=== PATIENT | female | born 1990 | race American Indian/Alaskan Native ===

== ENCOUNTER 2016-05-13 15:35 | Emergency (ER) | payer MEDICAID ==
[2016-05-13 17:33] LABS: Basophils % (Auto) 0.7 % (0.0-1.8); Eosinophils % (Auto) 0.8 % (0.0-4.3); Hematocrit 39.5 % (30.3-42.9); Hemoglobin 12.7 gm/dl (10.1-14.3); Mean Corpuscular HGB Conc 32 % (30-34); Mean Corpuscular Volume 80 fl (79-97); Platelet Count 357 K/mm3 (140-440); Red Blood Count 4.91 M/mm3 (3.65-5.03); Red Cell Distribution Width 15.5 % (13.2-15.2); White Blood Count 7.6 K/mm3 (4.5-11.0)
[2016-05-13 17:37] LABS: Mean Corpuscular Hemoglobin 26 pg (28-32)
[2016-05-13 17:49] LABS: Alanine Aminotransferase 15 units/L (7-56); Albumin 4.2 g/dL (3.9-5); Albumin/Globulin Ratio 1.4 %; Alkaline Phosphatase 48 units/L (35-129); Anion Gap 16 mmol/L; BUN/Creatinine Ratio 11.25; Bilirubin,Total 0.3 mg/dL (0.1-1.2); Blood Urea Nitrogen 9 mg/dL (7-17); Calcium 8.8 mg/dL (8.4-10.2); Carbon Dioxide 25 mmol/L (22-30); Chloride 100.1 mmol/L (98-107); Glucose 104 mg/dL (65-100); Lipase 27 units/L (13-60); Potassium 3.8 mmol/L (3.6-5.0); Sodium 137 mmol/L (137-145); Total Protein 7.1 g/dL (6.3-8.2)
[2016-05-13 18:10] LABS: Bilirubin,Urine NEG (Negative); Blood,Urine NEG (Negative); Ketones,Urine NEG (Negative); Leukocyte Esterase,Urine LG (Negative); Mucus,Urine FEW /HPF; Nitrite,Urine NEG (Negative); Protein,Urine <15 mg/dL mg/dL (Negative); Urobilinogen,Urine < 2.0 mg/dL (<2.0)
[2016-05-13 23:48] VITALS: BP 121/67
[2016-05-13] MEDS ORDERED: ZOFRAN ODT PO ONE (23:55)
[2016-05-13] MEDS ORDERED: KEFLEX PO ONE (23:55)
[2016-05-13] MEDS ORDERED: NORCO 7.5/325 PO ONE (23:55)
--- NOTE | 2016-05-14 00:08 | Emergency Department Report ---
HPI - General Chief Complaint: Abdominal Pain Time Seen by Provider: 05/13/16 23:41 - HPI HPI: The patient is a 25-year-old female presents for evaluation of abdominal pain. The patient reports suprapubic abdominal pain for the past 10 hours, constant since onset, 9/10 in severity, cramping and sharp in quality. She reports associated nausea and one episode of nonbilious, nonbloody emesis. She states that she has experienced similar pains in the past, secondary to ovarian cysts. The patient denies fever, chills, night sweats, diarrhea, blood in the stool, dark tarry stool, flank pain, genital discharge, inability to pass flatus. ED Past Medical Hx - Medications Home Medications: Home Medications Medication Instructions Recorded Confirmed Last Taken Type Acetaminophen/Codeine [Tylenol #3] 1 tab PO Q6H PRN #12 tab 05/13/16 Unknown Rx Cephalexin [Keflex] 500 mg PO Q6HR #20 capsule 05/13/16 Unknown Rx Ibuprofen [Motrin] 800 mg PO Q8HR PRN #14 tablet 05/13/16 Unknown Rx Ondansetron [Zofran TAB] 4 mg PO Q8HR PRN #14 tablet 05/13/16 Unknown Rx ED Review of Systems ROS: Stated complaint: HEADACHE/ABD PAIN Other details as noted in HPI Constitutional: denies: fever ENT: denies: throat or neck pain Respiratory: denies: cough, shortness of breath Cardiovascular: denies: chest pain Endocrine: denies unexplained weight loss or gain Gastrointestinal: reports abdominal pain, nausea Genitourinary: denies: dysuria Musculoskeletal: denies: leg swelling Skin: denies: rash Neurological: denies: headache Hematological/Lymphatic: denies: easy bleeding or easy bruising Psych: denies sadness or hopelessness Physical Exam - Physical Exam Vital Signs: Vital Signs 05/13/16 05/13/16 05/13/16 16:14 23:40 23:41 Temperature 98.3 F Pulse Rate 74 66 60 Respiratory 18 15 19 Rate Blood Pressure 136/87 121/67 O2 Sat by Pulse 100 100 99 Oximetry 05/13/16 23:47 Temperature 98.1 F Pulse Rate Respiratory Rate Blood Pressure O2 Sat by Pulse Oximetry Physical Exam: General: well-nourished, well-developed, no acute distress Head: Normocephalic, atraumatic Eyes: normal sclera ENT: Mucous membranes are pink and moist Neck: trachea midline, neck supple, No neck stiffness, no cervical adenopathy Respiratory: Breath sounds equal bilaterally, no wheezing, rales, or rhonchi Cardio: S1 and S2 present, no murmurs, rubs, gallops, capillary refill is brisk Abdomen: Normoactive bowel sounds, soft abdomen, suprapubic tenderness to palpation present, no rigidity, no guarding or rebound tenderness Chest WALL/Back: No tenderness to palpation of the chest wall, no CVA tenderness with percussion Musc: No pitting edema Skin: No rash Neuro: no facial drooping, normal speech Psych: Normal affect ED Course Vital Signs 05/13/16 05/13/16 05/13/16 16:14 23:40 23:41 Temperature 98.3 F Pulse Rate 74 66 60 Respiratory 18 15 19 Rate Blood Pressure 136/87 121/67 O2 Sat by Pulse 100 100 99 Oximetry 05/13/16 23:47 Temperature 98.1 F Pulse Rate Respiratory Rate Blood Pressure O2 Sat by Pulse Oximetry ED Medical Decision Making - Lab Data Result diagrams: 05/13/16 16:58 05/13/16 16:58 - Medical Decision Making The patient was seen and examined by myself. The patient is placed on a monitor and storage bin tender and continuous pulse ox. On initial evaluation, the patient was found to be in no distress. Evaluation orders are placed. The patient given a tablet of Zofran for her nausea and vomiting, and a tablet of [place] for her pain. Lab results revealed positive urine leukocyte esterase with elevated urine WBC, consistent with UTI, and otherwise labs were non-concerning including serum WBC, hemoglobin, hematocrit, electrolytes, renal function, LFTs , lipase, and urinalysis. The patient given a tablet of Keflex for treatment of UTI. The patient was reevaluated and reported that their symptoms were markedly improved. The patient is stable for discharge with outpatient follow- up. The patient is given follow-up and return instructions. The patient expressed understanding and agreed with the plan. The patient is discharged in stable condition. Critical care attestation.: If time is entered above; I have spent that time in minutes in the direct care of this critically ill patient, excluding procedure time. ED Disposition Clinical Impression: Acute UTI (urinary tract infection), Abdominal pain, acute, periumbilical Disposition: DISCHARGED TO HOME OR SELFCARE Is pt being admited?: No Does the pt Need Aspirin: No Condition: Stable Instructions: Abdominal Pain (ED), Urinary Tract Infection in Women (ED) Referrals: PRIMARY CARE, [Primary Care Provider] - 3-5 Days Time of Disposition: 23:56
== END 2016-05-14 00:22 | disposition home or self-care (01) ==
LOC: ED 15:35
DX: N39.0 Urinary tract infection, site not specified (principal)
CPT/HCPCS: 36415; 80053; 81001; 81025; 83690; 85025; 99284; Q0162

== ENCOUNTER 2017-01-22 20:58 | Emergency (ER) | payer SELFPAY ==
[2017-01-22 21:21] VITALS: BP 119/92
[2017-01-22] MEDS ORDERED: FIORICET PO ONE (21:28)
[2017-01-22 21:45] LABS: Basophils % (Auto) 1.3 % (0.0-1.8); Eosinophils % (Auto) 0.8 % (0.0-4.3); Hematocrit 37.7 % (30.3-42.9); Hemoglobin 12.8 gm/dl (10.1-14.3); Mean Corpuscular HGB Conc 34 % (30-34); Mean Corpuscular Hemoglobin 27 pg (28-32); Mean Corpuscular Volume 79 fl (79-97); Platelet Count 334 K/mm3 (140-440); Red Blood Count 4.78 M/mm3 (3.65-5.03); Red Cell Distribution Width 15.4 % (13.2-15.2); White Blood Count 9.3 K/mm3 (4.5-11.0)
[2017-01-22 22:07] LABS: Albumin 4.3 g/dL (3.9-5); Albumin/Globulin Ratio 1.4 %; Alkaline Phosphatase 42 units/L (35-129); Anion Gap 17 mmol/L; BUN/Creatinine Ratio 8; Blood Urea Nitrogen 6 mg/dL (7-17); Carbon Dioxide 25 mmol/L (22-30); Chloride 102.9 mmol/L (98-107); Glucose 108 mg/dL (65-100); Potassium 4.1 mmol/L (3.6-5.0); Sodium 141 mmol/L (137-145); Total Protein 7.4 g/dL (6.3-8.2)
[2017-01-22 22:35] LABS: Alanine Aminotransferase 12 units/L (7-56)
--- NOTE | 2017-01-22 23:54 | Cat Scan Report ---
FINAL REPORT PROCEDURE: CT HEAD/BRAIN WO CON TECHNIQUE: Computerized tomography of the head was performed without contrast material. HISTORY: left eye pain COMPARISON: No prior studies are available for comparison. FINDINGS: Skull and scalp: Normal. Paranasal sinuses: Normal. Ventricles and subarachnoid spaces: Normal. Cerebrum: No evidence of hemorrhage, acute infarction or mass . Cerebellum and brainstem: No evidence of hemorrhage, acute infarction or mass. Vasculature: Normal. Comments: None. IMPRESSION: Normal Examination
[2017-01-23] MEDS ORDERED: FUL-GLO OP ONE (01:55)
[2017-01-23] MEDS ORDERED: TETRACAINE 0.5% OD PRN (01:55)
--- NOTE | 2017-01-23 01:57 | Emergency Department Report ---
ED Eye Problem HPI - General Chief complaint: Eye Problems Stated complaint: LT EYE PAIN Time Seen by Provider: 01/23/17 01:50 Source: patient Mode of arrival: Ambulatory Limitations: No Limitations - History of Present Illness Initial comments: 26YO FEMALE WAS CRYING LAST NIGHT THEN SHE FELT THOUGH A FOREIGN BODY WAS IN HER EYE. SHE SI HERE TODAY WITH A ED LEFT EYE THAT IS TEARING. SHE DENIES TRAUMA, SEASONAL ALLERGIES OR ANYTHING TO THAT EYE. SHE ALSO DENIES ANY MEDICAL PROBLEMS MD chief complaint: eye pain, eye redness, eye injury, foreign body -: Sudden Onset Description: sudden Location: left eye Place: home If Injury: none Eye Symptoms: burning, redness, pain, foreign body sensation, discharge, photophobia Severity scale (0 -10): 4 If Pain, Quality: burning Consistency: constant Associated Symptoms: none. denies: cough, rhinorrhea - Related Data Previous Rx's Medication Instructions Recorded Last Taken Type Acetaminophen/Codeine [Tylenol #3] 1 tab PO Q6H PRN #12 tab 05/13/16 Unknown Rx Cephalexin [Keflex] 500 mg PO Q6HR #20 capsule 05/13/16 Unknown Rx Ibuprofen [Motrin] 800 mg PO Q8HR PRN #14 tablet 05/13/16 Unknown Rx Ondansetron [Zofran TAB] 4 mg PO Q8HR PRN #14 tablet 05/13/16 Unknown Rx Erythromycin [Erythromycin Ophth 1 dose OU ONCE #1 tube 01/23/17 Unknown Rx Oint] Ketorolac Tromethamine [Acular 1 ml OP QID #1 drops 01/23/17 Unknown Rx 0.5% Opth Soln] Allergies Allergy/AdvReac Type Severity Reaction Status Date / Time No Known Allergies Allergy Verified 01/22/17 21:14 ED Review of Systems ROS: Stated complaint: LT EYE PAIN Other details as noted in HPI Constitutional: denies: chills, fever Eyes: as per HPI, vision change ENT: denies: ear pain, throat pain Respiratory: denies: cough, shortness of breath, wheezing Cardiovascular: denies: chest pain, palpitations Endocrine: no symptoms reported Gastrointestinal: denies: abdominal pain, nausea, diarrhea Genitourinary: denies: urgency, dysuria, discharge Musculoskeletal: denies: back pain, joint swelling, arthralgia Skin: denies: rash, lesions Neurological: denies: headache, weakness, paresthesias Psychiatric: denies: anxiety, depression Hematological/Lymphatic: denies: easy bleeding, easy bruising ED Past Medical Hx - Past Medical History Previous Medical History?: Yes Hx Hypertension: Yes - Surgical History Past Surgical History?: Yes Additional Surgical History: - Social History Smoking Status: Never Smoker Substance Use Type: None - Medications Home Medications: Home Medications Medication Instructions Recorded Confirmed Last Taken Type Acetaminophen/Codeine [Tylenol #3] 1 tab PO Q6H PRN #12 tab 05/13/16 Unknown Rx Cephalexin [Keflex] 500 mg PO Q6HR #20 capsule 05/13/16 Unknown Rx Ibuprofen [Motrin] 800 mg PO Q8HR PRN #14 tablet 05/13/16 Unknown Rx Ondansetron [Zofran TAB] 4 mg PO Q8HR PRN #14 tablet 05/13/16 Unknown Rx Erythromycin [Erythromycin Ophth 1 dose OU ONCE #1 tube 01/23/17 Unknown Rx Oint] Ketorolac Tromethamine [Acular 1 ml OP QID #1 drops 01/23/17 Unknown Rx 0.5% Opth Soln] ED Physical Exam - General Limitations: No Limitations General appearance: alert, in no apparent distress - Head Head exam: Present: atraumatic, normocephalic - Eye Eye exam: Present: EOMI, conjunctival injection. Absent: periorbital swelling, periorbital tenderness Pupils: Present: normal accommodation - ENT ENT exam: Present: mucous membranes moist - Neck Neck exam: Present: normal inspection. Absent: tenderness - Respiratory Respiratory exam: Present: normal lung sounds bilaterally. Absent: respiratory distress, wheezes, rales, rhonchi - Cardiovascular Cardiovascular Exam: Present: regular rate, normal rhythm, normal heart sounds. Absent: systolic murmur, diastolic murmur, rubs, gallop - GI/Abdominal GI/Abdominal exam: Present: soft, normal bowel sounds - Rectal Rectal exam: Present: deferred - Extremities Exam Extremities exam: Present: normal inspection, full ROM - Back Exam Back exam: Present: normal inspection, full ROM - Neurological Exam Neurological exam: Present: alert, oriented X3 - Psychiatric Psychiatric exam: Present: normal affect, normal mood - Skin Skin exam: Present: warm, dry, intact, normal color. Absent: rash ED Course Vital Signs 01/22/17 21:14 Temperature 98.4 F Pulse Rate 74 Respiratory 16 Rate Blood Pressure 119/92 O2 Sat by Pulse 99 Oximetry - Eye Procedure Alcaine Drops Administered: Yes (TETRACAINE) Eye FB Removal: other (NO FOREIGN BODY SEEN, SCLERAL ABRASION, CORNEAL ABRASION) Eye Irrigated w/ Saline (ccs): 1,000 Cyclogel 2 Drops Administered: left eye Progress: PT NUMBED IN LEFT EYE WITH TETRACAINE AND STAINED WITH FLUROSCEINE . THERE WAS UPTAKE ON SCLERA AND CORNES. ED Medical Decision Making - Lab Data Result diagrams: 01/22/17 21:30 01/22/17 21:30 - Medical Decision Making OD 20/25 OS 20/50 OU 20/20 Critical care attestation.: If time is entered above; I have spent that time in minutes in the direct care of this critically ill patient, excluding procedure time. ED Disposition Clinical Impression: Corneal abrasion, left Qualifiers: Encounter type: initial encounter Qualified Code(s): S05.02XA - Injury of conjunctiva and corneal abrasion without foreign body, left eye, initial encounter Foreign body in eye Qualifiers: Encounter type: initial encounter Laterality: left Qualified Code(s): T15.92XA - Foreign body on external eye, part unspecified, left eye, initial encounter Disposition: DC-01 TO HOME OR SELFCARE Is pt being admited?: No Does the pt Need Aspirin: No Condition: Stable Prescriptions: Erythromycin [Erythromycin Ophth Oint] 1 dose OU ONCE #1 tube Ketorolac Tromethamine [Acular 0.5% Opth Soln] 1 ml OP QID #1 drops Referrals: PRIMARY CARE, [Primary Care Provider] - 3-5 Days [facility] [Outside] - 3-5 Days
[2017-01-23] MEDS ORDERED: NACL 0.9% 1000 ML 1,000 ML ONE (03:11)
[2017-01-23] MEDS ORDERED: NACL 0.9% 1000 ML 1,000 ML IV ONE (07:24)
== END 2017-01-23 04:41 | disposition home or self-care (01) ==
LOC: ED 20:58
DX: S00.212A Abrasion of left eyelid and periocular area, initial encounter (principal); T15.92XA Foreign body on external eye, part unspecified, left eye, initial encounter; I10 Essential (primary) hypertension; X58.XXXA Exposure to other specified factors, initial encounter; Y93.89 Activity, other specified; Y92.89 Other specified places as the place of occurrence of the external cause; Y99.8 Other external cause status
CPT/HCPCS: 36415; 70450; 80053; 84703; 85025; 96360; 99284; J7030